=== PATIENT | female | born 1990 ===

== ENCOUNTER 2024-09-13 11:00 | Day surgery (SDC) | payer OTHER ==
[2024-09-09 08:36] VITALS: BP 128/84
[2024-09-09 08:40] LABS: BASO % 1.2 % (0.1-1.2); EOS # 0.18 (0.04-0.54); EOS % 4.4 % (0.7-7.0); HEMOGLOBIN 12.4 g/dL (11.2-15.7); LYMPH # 1.84 (1.18-3.74); LYMPH % 44.9 % (19.3-53.1); MEAN CORPUSCULAR HEMOGLOBIN 27.9 pg (25.6-32.2); MONO # 0.35 (0.24-0.82); MONO % 8.5 % (4.7-12.5); NEUT # 1.67 (1.56-6.13); NEUT % 40.8 % (34.0-71.1); PLATELET COUNT 333 K/uL (163-369); RED BLOOD COUNT 4.44 M/uL (3.93-5.22); RED CELL DISTRIBUTION WIDTH 13.8 % (11.6-14.4)
[2024-09-09 09:05] LABS: INR 0.95; PROTHROMBIN TIME 10.4 SECONDS (9.0-11.5)
[2024-09-09 09:48] LABS: BILIRUBIN TOTAL 0.44 mg/dL (0.3-1.2); CALCIUM 9.2 mg/dL (8.5-10.1); CREATININE SERUM 0.57 mg/dL (0.55-1.02); GFR 122.92; GLOBULINA 3.1 G/DL (2.4-3.5); POTASSIUM 4.54 mEq/L (3.5-5.1); TOTAL PROTEIN 7.1 gm/dL (6.4-8.2)
[~2024-09-13] VITALS: Ht 157.5 cm; Wt 61.2 kg
[2024-09-13] MEDS ORDERED: POVIDONE-IODINE 118 ML BOTT TOP ONE (16:47)
[2024-09-13] MEDS ORDERED: CHLORHEXIDINE GLUCONATE 120 ML BOTTLE TOP ONE (16:48)
[2024-09-13] MEDS ORDERED: MORPHINE SULFATE 4 MG/ML VIAL IV PRN (18:30)
[2024-09-13] MEDS ORDERED: PROMETHAZINE HCL 50 MG/ML AMPUL IM ONE (18:30)
== END 2024-09-13 20:35 | disposition home or self-care (01) ==
LOC: CIR.AMB 11:00
PROVIDERS: ATTEND Obstetrics & Gynecology
DX: N85.00 Endometrial hyperplasia, unspecified (principal); N93.8 Other specified abnormal uterine and vaginal bleeding